=== PATIENT | female | born 1980 | race African-American/Black ===

== ENCOUNTER 2017-09-19 01:59 | Emergency (ER) | payer SELFPAY ==
[2017-09-19] MEDS: KETOROLAC 15 MG/ML VIAL. IV (02:39)
[2017-09-19] MEDS: ASPIRIN CHEWABLE 81 MG TABLET. PO (02:40)
[2017-09-19 02:44] LABS: ADD MAN DIFF? NO
[2017-09-19 02:49] LABS: BASO % 1 % (0-3); EOS # 0.1 x10^3/uL (0.0-0.7); EOS % 2 % (0-3); HEMATOCRIT 37.2 % (36.0-47.0); HEMOGLOBIN 12.5 g/dL (12.0-15.5); LYMPH # 2.9 x10^3/uL (1.0-4.8); LYMPH % 37 % (24-48); MEAN CORPUSCULAR HEMOGLOBIN 27 pg (25-35); MEAN CORPUSCULAR HGB CONC 34 g/dL (31-37); MEAN CORPUSCULAR VOLUME 79 fL (79-100); MONO # 0.5 x10^3/uL (0.0-1.1); MONO % 6 % (0-9); NEUT # 4.3 x10^3uL (1.8-7.7); NEUT % 55 % (31-73); PLATELET COUNT 296 x10^3/uL (140-400); RED BLOOD COUNT 4.72 x10^6/uL (3.50-5.40); RED CELL DISTRIBUTION WIDTH 14.4 % (11.5-14.5); WHITE BLOOD COUNT 7.8 x10^3/uL (4.0-11.0)
[2017-09-19 02:55] LABS: URINE HCG POC HCG NEGATIVE (Negative)
[2017-09-19 02:55] LABS: BILIRUBIN,URINE NEGATIVE (NEG); CLARITY,URINE CLEAR; COLOR,URINE YELLOW; GLUCOSE,URINE NEGATIVE (NEG); NITRITE,URINE NEGATIVE (NEG); PROTEIN,URINE NEGATIVE (NEG-TRACE)
[2017-09-19 03:03] LABS: NEG OBC SER NEG; POS OBC SER POS; PREG TEST PT QUAL NEGATIVE (NEG)
[2017-09-19 03:05] LABS: D-DIMER 0.33 ug/mlFEU (0.00-0.50)
[2017-09-19 03:15] LABS: BACTERIA,URINE MANY /HPF (0-FEW); SQUAMOUS EPITHELIAL CELL,UR MANY /LPF
[2017-09-19 03:19] LABS: ANION GAP 10 (6-14); BLOOD UREA NITROGEN 10 mg/dL (7-20); BUN/CREATININE RATIO 10 (6-20); CALCIUM 8.5 mg/dL (8.5-10.1); CARBON DIOXIDE 28 mmol/L (21-32); CHLORIDE 104 mmol/L (98-107); GFR 76.3; GLUCOSE 105 mg/dL (70-99); POTASSIUM 3.1 mmol/L (3.5-5.1); SODIUM 142 mmol/L (136-145)
[2017-09-19 03:23] LABS: TROPONINI < 0.017 ng/mL (0.000-0.055)
[2017-09-19 03:30] LABS: ALBUMIN 3.3 g/dL (3.4-5.0); ALBUMIN/GLOBULIN RATIO 0.9 (1.0-1.7); ALK PHOS 105 U/L (46-116); ALT (SGPT) 23 U/L (14-59); AST (SGOT) 19 U/L (15-37); CREATINE KINASE 200 U/L (26-192); LIPASE 115 U/L (73-393); TOTAL BILIRUBIN 0.3 mg/dL (0.2-1.0)
[2017-09-19] MEDS: cefTRIAXone IV Push 1 GM VIAL. IVP (04:04)
[2017-09-19] MEDS: POTASSIUM CHLORIDE 20 MEQ TABLET.ER. PO (04:05)
== END 2017-09-19 04:20 | disposition home or self-care (01) ==
LOC: ER 01:59
DX: R07.89 Other chest pain (principal); N39.0 Urinary tract infection, site not specified; E87.6 Hypokalemia; I10 Essential (primary) hypertension
CPT/HCPCS: 36415; 71045; 80053; 81001; 81025; 82550; 83690; 84484; 84703; 85025; 85379; 93005; 96374; 96375; 99285-25; J0696; J1885

== ENCOUNTER 2018-05-11 16:46 | Emergency (ER) | payer SELFPAY ==
[~2018-05-11] VITALS: Ht 162.6 cm; Wt 117.9 kg
[~2018-05-11 16:46] MED LIST: CEPH-264 PO; KETO10TA PO; POTA20TA82 PO
[2018-05-11] MEDS ORDERED: LISI-334 PO (17:07)
[2018-05-11] MEDS ORDERED: AMLO10TA4 PO (17:07)
[2018-05-11] MEDS ORDERED: cloNIDine HCL 0.1 MG TABLET PO ONE (17:15)
[2018-05-11 18:01] VITALS: BP 167/90
--- NOTE | 2018-05-11 18:01 | PHYS DOC ---
Past Medical History Past Medical History: Hypertension Additional Past Medical Histor: sleep apnea Past Surgical History: Other Additional Past Surgical Histo: ear surgery Alcohol Use: None Drug Use: None Adult General Chief Complaint Chief Complaint: HYPERTENSION HPI HPI Patient is a 38 year old Italian female with history of hypertension, sleep apnea presents with poorly controlled blood pressure and medication noncompliance. Patient states she is been off all blood pressure medications for the past several months as she was hopeful she would be able to manage her blood pressure with weight loss and exercise. However, her hypertensive been unsuccessful. Patient reports occasional headaches and chest pain which she relates to blood pressure. Blood pressure 230s over 120s. Patient states her blood pressure always runs that high. She has previously prescribed lisinopril and Norvasc. She currently denies headache, palpitations, shortness of breath increased leg pain or swelling, or decreased urinary output. Patient does have a PCP but does not see him on a routine basis. No drugs or alcohol. ] Review of Systems Review of Systems Review symptoms as per history of present illness. All other systems were reviewed and found to be within normal limits, except as documented in this note. Current Medications Current Medications Current Medications Medications (Trade) Dose Ordered Sig/Alicia Start Time Stop Time Status Last Admin Dose Admin Clonidine HCl (Catapres) 0.2 mg 1X ONCE 05/11/18 17:15 05/11/18 17:16 DC 05/11/18 17:27 0.2 MG Allergies Allergies Allergies Coded Allergies Type Severity Reaction Last Updated Verified No Known Drug Allergies 09/19/17 No Physical Exam Physical Exam Constitutional: Resting comfortably, no acute distress.. [] HENT: Normocephalic, atraumatic, bilateral external ears normal, oropharynx moist, no oral exudates, nose normal. [] Eyes: PERRLA, EOMI, conjunctiva normal, no discharge. [] Neck: Normal range of motion, no tenderness, supple, no stridor. [] Cardiovascular:Heart rate regular rhythm, no murmur [] Lungs & Thorax: Bilateral breath sounds clear to auscultation [] Abdomen: Bowel sounds normal, soft, no tenderness. [] Skin: Warm, dry, no erythema, no rash. [] Back: No tenderness, no CVA tenderness. [] Extremities: No tenderness, no cyanosis, no clubbing, ROM intact, no edema. [] Neurologic: Alert and oriented X 3, normal motor function, normal sensory function, no focal deficits noted. [] Psychologic: Affect normal, judgement normal, mood normal. [] Current Patient Data Vital Signs Vital Signs Date Time Temp Pulse Resp B/P (MAP) Pulse Ox O2 Delivery O2 Flow Rate FiO2 05/11/18 17:27 66 208/112 05/11/18 17:07 98.6 18 100 Room Air 98.6 EKG EKG [] Radiology/Procedures Radiology/Procedures [] Course & Med Decision Making Course & Med Decision Making Pertinent Labs and Imaging studies reviewed. (See chart for details) [Blood pressure 160/90 recheck after treatment. Home blood pressure medications refilled. Patient instructed to take occasions this evening prior to bedtime to follow-up with her PCP early next week for reevaluation and management of blood pressure and routine primary care.] Dragon Disclaimer Dragon Disclaimer This electronic medical record was generated, in whole or in part, using a voice recognition dictation system. Departure Departure Impression: Primary Impression: Noncompliance with medication regimen Additional Impression: Uncontrolled hypertension Disposition: HOME, SELF-CARE Condition: IMPROVED Referrals: SHEYLA SOTO Patient Instructions: Hypertension, [id number] Additional Instructions: Please fill medications immediately after leaving emergency department and take first dose of medications this evening. Check and record daily blood pressure follow-up with your PCP next week for reevaluation. Return to the ED if new or worsening symptoms. Scripts Amlodipine Besylate (NORVASC) 10 Mg Tablet 10 MG PO DAILY, #30 TAB Prov: ODETTE CASPER DO 05/11/18 Lisinopril (LISINOPRIL) 20 Mg Tablet 1 TAB PO DAILY, #30 TAB 1 Refill Prov: ODETTE CASPER DO 05/11/18 Problem Qualifiers ODETTE CASPER DO May 11, 2018 18:01
== END 2018-05-11 18:11 | disposition home or self-care (01) ==
LOC: ER 16:46
DX: I10 Essential (primary) hypertension (principal); R51 Headache; R07.89 Other chest pain; Z91.14 Patient's other noncompliance with medication regimen
CPT/HCPCS: 99283